=== PATIENT | female | born 1985 ===

== ENCOUNTER 2017-12-12 20:23 | Emergency (ER) | payer SELFPAY ==
[2017-12-12 21:29] VITALS: BMI 31.0
[2017-12-12 21:43] LABS: SQUAMOUS EPITHIAL 4 /hpf (0-5); URINE BACTERIA RARE (<OCC); URINE BILIRUBIN NEGATIVE (NEGATIVE); URINE BLOOD NEGATIVE (NEGATIVE); URINE CLARITY Clear (Clear); URINE COLOR Yellow (YELLOW); URINE GLUCOSE (UA) NORMAL (Normal); URINE LEUKOCYTE ESTERASE TRACE Leu/uL (Negative); URINE PROTEIN NEGATIVE (NEGATIVE); URINE UROBILINOGEN NORMAL mg/dL (0.2-1.0)
[2017-12-13 02:20] VITALS: BP 110/65; PULSE 82; RESP 20; TEMP 98.2; O2SAT 98
== END 2017-12-12 22:00 | disposition home or self-care (01) ==
LOC: C.EROB 20:23
DX: O26.893 Other specified pregnancy related conditions, third trimester (principal); R10.31 Right lower quadrant pain; Z3A.35 35 weeks gestation of pregnancy